=== PATIENT | male | born 1990 | race Two or more races ===

== ENCOUNTER 2023-09-14 19:21 | Emergency (ER) | payer MEDICARE, OTHER ==
[~2023-09-14] VITALS: Ht 167.6 cm; Wt 71.8 kg
[2023-09-14 20:05] LABS: BASOPHILS % (AUTO) 0.3 % (0.0-2.0); EOSINOPHILS % (AUTO) 0.1 % (1.0-6.0); HEMATOCRIT 35.2 % (41-53); LYMPHOCYTES # (AUTO) 0.8 K/uL (1.0-4.8); LYMPHOCYTES % (AUTO) 4.4 % (22.0-44.0); MEAN CORPUSCULAR HEMOGLOBIN 34.9 pg (26.0-34.0); MEAN CORPUSCULAR VOLUME 103 fL (80-100); MONOCYTES # (AUTO) 0.6 K/uL (0.1-1.0); MONOCYTES % (AUTO) 3.6 % (2.0-9.0); NEUTROPHILS # (AUTO) 16.2 K/uL (1.8-7.7); PLATELET COUNT (AUTO) 253 K/uL (150-450); RED BLOOD CELL COUNT(AUTO) 3.43 MIL/uL (4.50-5.90); RED CELL DISTRIBUTION WIDTH 18.3 % (11.5-14.5); WHITE BLOOD COUNT (AUTO) 17.7 K/uL (4.5-11.0)
[2023-09-14 20:08] LABS: NEUTROPHILS % (AUTO) 91.6 % (40.0-70.0)
[2023-09-14 20:14] LABS: CREATININE 15.85 mg/dL (0.60-1.30); POTASSIUM 5.5 mmol/L (3.5-5.1)
[2023-09-14 20:19] LABS: ALBUMIN 4.6 g/dL (3.4-5.0); BILIRUBIN,TOTAL 0.6 mg/dL (0.1-1.0); TOTAL PROTEIN, SERUM 8.8 g/dL (6.4-8.2)
[2023-09-14 20:28] LABS: RBC MORPHOLOGY COMMENT ABNORMAL RBC MORPH
[2023-09-14 22:22] LABS: TROPONIN I-HIGH SENSITIVITY 7 ng/L (<76)
[2023-09-15 01:30] VITALS: TEMP 97.3
[2023-09-15 06:30] VITALS: BP 118/69; PULSE 65; RESP 19
[2023-09-15] MEDS ORDERED: SODIUM ZIRCONIUM CYCLOSILICATE 5 GM POWDER PACKET PO ONE (06:30)
== END 2023-09-15 07:12 | disposition home or self-care (01) ==
LOC: EMS 19:22
DX: R11.10 Vomiting, unspecified (principal); R19.7 Diarrhea, unspecified; D72.829 Elevated white blood cell count, unspecified; N18.6 End stage renal disease; I10 Essential (primary) hypertension
CPT/HCPCS: 99285; 76700; 80053; 83690; 83880; 84484; 85025; 36415; 93005; 74176; Q9967